=== PATIENT | male | born 1955 | race Caucasian/White ===

== ENCOUNTER → 2024-02-08 | Emergency (ER) | payer MEDICARE, MEDICAID ==
[~2024-02-08] VITALS: Ht 172.7 cm; Wt 68.0 kg
[~2024-02-08] MED LIST: CEPH-585 PO
[2024-02-08 15:18] VITALS: BP 119/72; PULSE 68; RESP 16; O2SAT 99
[2024-02-08 18:33] VITALS: TEMP 97
== END | disposition home or self-care (01) ==
LOC: ER 15:07
DX: T25.232A Burn of second degree of left toe(s) (nail), initial encounter (principal); E11.9 Type 2 diabetes mellitus without complications; X08.8XXA Exposure to other specified smoke, fire and flames, initial encounter; Y93.89 Activity, other specified; Y92.89 Other specified places as the place of occurrence of the external cause; Y99.8 Other external cause status
CPT/HCPCS: 73630; 99283

== ENCOUNTER 2024-03-05 13:49 | Emergency (ER) | payer MEDICARE, MEDICAID ==
[~2024-03-05] VITALS: Ht 170.2 cm; Wt 72.0 kg
[2024-03-05 14:10] VITALS: BP 93/63; PULSE 89; RESP 16; O2SAT 99
[2024-03-05] MEDS ORDERED: CEPH-585 PO (16:14)
[2024-03-05 16:44] VITALS: TEMP 98.6
== END 2024-03-05 16:46 | disposition home or self-care (01) ==
LOC: ER 13:50
DX: T25.232A Burn of second degree of left toe(s) (nail), initial encounter (principal); E11.51 Type 2 diabetes mellitus with diabetic peripheral angiopathy without gangrene; X08.8XXA Exposure to other specified smoke, fire and flames, initial encounter; Y93.89 Activity, other specified; Y92.89 Other specified places as the place of occurrence of the external cause; Y99.8 Other external cause status
CPT/HCPCS: 99283